=== PATIENT | female | born 1980 | race Caucasian/White ===

== ENCOUNTER 2020-05-12 12:14 | Inpatient (IN) | payer SELFPAY ==
[2020-05-12 12:15] VITALS: BP 137/77; PULSE 81; RESP 18; O2SAT 97; BMI 28.2
[2020-05-12] MEDS: haloperidol inj 5 mg/mL INJ 1 mL IM (12:24)
--- NOTE | 2020-05-12 12:30 | ED_ITS ---
HPI - Psych General: Chief Complaint: Psychiatric Symptoms Stated Complaint: PSYCH EVAL Time Seen by Provider: 05/12/20 12:22 History of Present Illness: HPI Narrative: The patient is a 39-year-old female who comes to the ER via ambulance after apparent psychotic break at home. EMS says they were there earlier in the day when she said she was anxious but was making sense and refused transport to the ER. They were called a second time and she was hallucinating saying people are there and are at their, hearing things that no one else was hearing, and telling the EMS people she was engaging in intercourse with animals. She tried to leave before they arrived and the EMT had to restrain her. In the ER she is disorganized, not answering questions appropriately. She does not know her birthday and is not answering many questions. She is not sure if she had alcohol or drugs. She denies suicidal and homicidal ideations but appears acutely manic and psychotic disorganized thought process. EMS says that she does not take medications. There are no p rior records in the ER of psychiatric visits. MD complaint: altered mental status Duration: constant Review of Systems General: Reports: ROS unobtainable due to mental status and Other (She is refusing to answer questions) Physical Exam Const: COMMON NORMALS: no acute distress, average body habitus, patient oriented x3, no limitations, healthy appearing, alert and well nourished GENERAL APPEARANCE: cooperative, comfortable and well developed ORIENTATION/CONSCIOUSNESS: Yes awake, Yes oriented to person, Yes oriented to place and Yes oriented to time HENMT: COMMON NORMALS: normocephalic, external ears normal and Normal external nose present HEAD & SCALP: normal to inspection and normocephalic NOSE: Normal external nose present EXTERNAL EAR: Yes external ears normal MOUTH: Normal oral and palatal mucosa present THROAT: posterior oropharynx normal Eye: COMMON NORMALS: Equal, round and reactive pupils present and EOMs intact bilaterally GENERAL EYE: appearance normal, both eyes and all related structures PUPIL: Yes Equal, round and reactive pupils present Neck/C-Spine: COMMON NORMALS: full ROM, no lymphadenopathy, no meningeal signs and no JVD GENERAL: Yes normal visual inspection Lymph: LYMPHATIC: no lymphadenopathy noted Chest: COMMONS NORMALS: normal inspection of the chest and normal palpation of entire chest wall Resp: COMMON NORMALS: normal respiratory effort, No retractions, No use of accessory muscles, clear to auscultation bilaterally and percussion normal EFFORT & INSPECTION: Yes able to speak in complete sentences AUSCULTATION: clear to auscultation bilaterally PERCUSSION: percussion normal Cardio: COMMON NORMALS: no JVD, regular rate, regular rhythm, S1 normal heart sound present, S2 normal heart sound present and Peripheral pulses 2+ throughout RATE: regular rate RHYTHM: regular rhythm HEART SOUNDS: S1 normal heart sound present and S2 normal heart sound present PERIPHERAL PULSES: Peripheral pulses 2+ throughout GI: COMMON NORMALS: Normal to inspection, nondistended, normoactive bowel sounds present, Soft to palpation, non-tender and no masses INSPECTION: Yes normal to inspection PALPATION: Yes Soft to palpation : COMMON NORMALS: Yes no CVA tenderness BLADDER/KIDNEY EXAM: Yes no CVA tenderness Back/Pelvis: COMMON NORMALS: no CVA tenderness, thoracic and lumbar spine normal to inspection, no thoracic nor lumbar tenderness and thoraco-lumbar ROM normal Extremity: COMMON NORMALS: normal to inspection, full ROM, capillary refill normal, no joint enlargement and no pedal edema GENERAL: Yes normal exam except as noted Neuro: COMMON NORMALS: patient oriented x3, CN's II-XII intact bilaterally, moves all extremities, no focal motor deficits, no sensory deficits noted and gait normal SENSORIUM/ORIENTATION: Yes alert, Yes oriented to person, Yes oriented to place and Yes oriented to time MENINGEAL SIGNS: Yes no meningeal signs Psych: COMMON NORMALS: denies homicidal ideation and denies suicidal ideation APPEARANCE: Yes unkempt, Yes disheveled and Yes bizarre ATTITUDE: Yes paranoid, Yes bizarre and Yes agitated ACTIVITY/MOTOR BEHAVIOR: Yes psychomotor agitation, Yes disorganized behavior and Yes Avoids eye contact (attititude/behavior) SPEECH: Yes minimal MOOD & AFFECT: Yes elevated mood and Yes anxious THOUGHT PROCESS: incoherent and disorganized ATTENTION/CON CENTRATION: Yes concentration grossly intact and Yes concentration grossly impaired MEMORY/COGNITION: Yes memory grossly impaired INSIGHT: Poor insight present (Psych) JUDGEMENT: Poor judgement present (Psych) OTHER: Actively hallucinating thoughts of people that are in the room animals in the room and other people are not real. Skin: COMMON NORMALS: no rashes or lesions noted GENERAL SKIN EXAM: no rashes or lesions noted MDM - Psych MDM Narrative: Medical decision making narrative: After Haldol she was still not thinking clearly and I wrote an involuntary petition for her admission to [facility]. She was accepted by psych and transferred in stable condition. She also had meth in her system which likely contributed to her dehydration and psychosis. Differential Diagnosis: Psych Differential Diagnosis: Likely acute psychosis and drug-induced psychotic disorder Lab Data: Labs: Lab Results 05/12/20 05/12/20 05/12/20 Range/Units 12:29 12:29 12:29 WBC (4.0-10.0) 10^3/ uL RBC (4.1-5.3) 10^6/u L Hgb (11.5-15.3) g/dL Hct (37.0-47.0) % MCV (81-99) fL MCH (28.0-34.0) pg MCHC (30.0-36.0) g/dL RDW (12.1-15.1) % Plt Count (130-400) 10^3/c mm MPV (7.4-10.4) fL Neut % (Auto) % Lymph % (Auto) % Marin % (Auto) % Eos % (Auto) % Baso % (Auto) % Neut # (Auto) (1.8-7.7) 10^3/u L Lymph # (Auto) (0.8-4.8) 10^3/u L Marin # (Auto) (0.2-0.9) 10^3/u L Eos # (Auto) (0.0-0.8) 10^3/u L Baso # (Auto) (0.0-0.1) 10^3/u L Nucleated RBC % (a uto) % Nucleated RBCs # /100WBC Sodium (136-145) mmol/L Potassium (3.5-5.1) mmol/L Chloride (98-107) mmol/L Carbon Dioxide (22-29) mmol/L Anion Gap (5-19) BUN (6-20) mg/dL Creatinine (0.5-0.9) mg/dL GFR Calculation (90-130) mL/min Glucose (65-115) mg/dL Calculated Osmolal ity (285-295) mOsm/k g Calcium (8.5-10.5) mg/dL Total Bilirubin (0.15-1.2) mg/dL AST (0-32) U/L ALT (0-33) U/L Alkaline Phosphata se (35-105) IU/L Total Protein (6.6-8.7) g/dL Albumin (3.5-5.2) g/dL Globulin (1.3-4.6) g/dL HCG, Qual Negative (Negative) Urine Color Yellow (Yellow) Urine Appearance Clear (CLEAR) Urine pH 5 (5-7) Ur Specific Gravit y 1.025 (1.005-1.030) Urine Protein Trace (Negative) Urine Glucose (UA) Norm (Normal) Urine Ketones 2+ H (Negative) Urine Blood 2+ H (Negative) Urine Nitrate Negative (Negative) Urine Bilirubin 1+ H (Negative) Urine Urobilinogen 4 H (Negative) mg/dL Ur Leukocyte Kirstin ase Negative (Negative) Urine RBC 0-4 H (0-2) /hpf Urine WBC None (0-5) /hpf Ur Squamous Epith Cells 5-10 H (0-5) /hpf Amorphous Sediment Not Reportable Urine Bacteria 1+ H (NONE) /hpf Urine Mucus 1+ /hpf Salicylates (3-10) mg/dL Urine Opiates Scre en Negative (Negative) ng/mL Acetaminophen (10-30) ug/mL Ur Barbiturates Sc reen Negative (Negative) ng/mL Ur Phencyclidine S crn Negative (Negative) ng/mL Ur Amphetamines Sc reen Positive H (Negative) ng/mL U Benzodiazepines Scrn Negative (Negative) ng/mL Urine Cocaine Scre en Negative (Negative) ng/mL U Marijuana (THC) Screen Positive H (Negative) ng/mL Ethyl Alcohol (0-10) mg/dL 05/12/20 05/12/20 Range/Units 12:33 12:33 WBC 7.0 (4.0-10.0) 10^3/ uL RBC 4.49 (4.1-5.3) 10^6/u L Hgb 14.3 (11.5-15.3) g/dL Hct 40.2 (37.0-47.0) % MCV 89.5 (81-99) fL MCH 31.8 (28.0-34.0) pg MCHC 35.6 (30.0-36.0) g/dL RDW 12.0 L (12.1-15.1) % Plt Count 249 (130-400) 10^3/c mm MPV 10.4 (7.4-10.4) fL Neut % (Auto) 66.0 % Lymph % (Auto) 23.1 % Marin % (Auto) 9.9 % Eos % (Auto) 0.3 % Baso % (Auto) 0.4 % Neut # (Auto) 4.62 (1.8-7.7) 10^3/u L Lymph # (Auto) 1.6 (0.8-4.8) 10^3/u L Marin # (Auto) 0.7 (0.2-0.9) 10^3/u L Eos # (Auto) 0.0 (0.0-0.8) 10^3/u L Baso # (Auto) 0.0 (0.0-0.1) 10^3/u L Nucleated RBC % (a uto) 0 % Nucleated RBCs # 0.0 /100WBC Sodium 137 (136-145) mmol/L Potassium 3.2 L (3.5-5.1) mmol/L Chloride 104 (98-107) mmol/L Carbon Dioxide 16 L (22-29) mmol/L Anion Gap 20.2 H (5-19) BUN 14 (6-20) mg/dL Creatinine 0.8 (0.5-0.9) mg/dL GFR Calculation 79.9 L (90-130) mL/min Glucose 136 H (65-115) mg/dL Calculated Osmolal ity 287 (285-295) mOsm/k g Calcium 9.7 (8.5-10.5) mg/dL Total Bilirubin 1.5 H (0.15-1.2) mg/dL AST 24 (0-32) U/L ALT 20 (0-33) U/L Alkaline Phosphata se 63 (35-105) IU/L Total Protein 7.9 (6.6-8.7) g/dL Albumin 4.7 (3.5-5.2) g/dL Globulin 3.2 (1.3-4.6) g/dL HCG, Qual (Negative) Urine Color (Yellow) Urine Appearance (CLEAR) Urine pH (5-7) Ur Specific Gravit y (1.005-1.030) Urine Protein (Negative) Urine Glucose (UA) (Normal) Urine Ketones (Negative) Urine Blood (Negative) Urine Nitrate (Negative) Urine Bilirubin (Negative) Urine Urobilinogen (Negative) mg/dL Ur Leukocyte Kirstin ase (Negative) Urine RBC (0-2) /hpf Urine WBC (0-5) /hpf Ur Squamous Epith Cells (0-5) /hpf Amorphous Sediment Urine Bacteria (NONE) /hpf Urine Mucus /hpf Salicylates < 0.3 L (3-10) mg/dL Urine Opiates Scre en (Negative) ng/mL Acetaminophen < 5.0 L (10-30) ug/mL Ur Barbiturates Sc reen (Negative) ng/mL Ur Phencyclidine S crn (Negative) ng/mL Ur Amphetamines Sc reen (Negative) ng/mL U Benzodiazepines Scrn (Negative) ng/mL Urine Cocaine Scre en (Negative) ng/mL U Marijuana (THC) Screen (Negative) ng/mL Ethyl Alcohol < 10 (0-10) mg/dL Discharge Plan Discharge Patient Disposition: Admitted As Inpatient Admit Provider: Corey Duenas Coding Level of Care Code ED [employer] Stretcher for Dereck[employer] Fwd Exam Comprehensive
[2020-05-12 12:54] LABS: HCG Qualitative Urine. Negative (Negative)
[2020-05-12 12:58] LABS: Basophils % 0.4 %; Eosinophils % 0.3 %; Hematocrit 40.2 % (37.0-47.0); Hemoglobin 14.3 g/dL (11.5-15.3); Lymphocytes # 1.6 10^3/uL (0.8-4.8); Lymphocytes % 23.1 %; Mean Corpuscular HGB Conc 35.6 g/dL (30.0-36.0); Mean Corpuscular Hemoglobin 31.8 pg (28.0-34.0); Mean Corpuscular Volume 89.5 fL (81-99); Mean Platelet Volume 10.4 fL (7.4-10.4); Monocytes # 0.7 10^3/uL (0.2-0.9); Monocytes % 9.9 %; Neutrophils # 4.62 10^3/uL (1.8-7.7); Nucleated Red Blood Cells % 0 %; Platelet Count 249 10^3/cmm (130-400); Red Blood Count 4.49 10^6/uL (4.1-5.3)
[2020-05-12 13:01] LABS: Add Urine Microscopic? YES; Bilirubin Urine 1+ (Negative); Blood Urine 2+ (Negative); Glucose Urine UA Norm (Normal); Ketones Urine 2+ (Negative); Leukocyte Esterase Urine Negative (Negative); Nitrate Urine Negative (Negative); Protein Urine Trace (Negative); RBC Urine 0-4 /hpf (0-2); Specific Gravity, Urine 1.025 (1.005-1.030); Urine Appearance Clear (CLEAR); Urine Color Yellow (Yellow); Urobilinogen Urine 4 mg/dL (Negative); pH Urine 5 (5-7)
[2020-05-12 13:02] LABS: Add Urine Culture? No; Bacteria Urine 1+ /hpf; Mucus Urine 1+ /hpf
[2020-05-12 13:03] LABS: Amphetamines Screen Urine Positive (Negative); Barbiturates Screen Urine Negative (Negative); Benzodiazepines Screen Urine Negative (Negative); Cocaine Screen Urine Negative (Negative); Opiate Screen Urine Negative (Negative); PCP Screen Urine Negative (Negative); THC Screen Urine Positive (Negative)
[2020-05-12 13:17] LABS: Alanine Aminotransferase 20 U/L (0-33); Albumin Level 4.7 g/dL (3.5-5.2); Alkaline Phosphatase 63 IU/L (35-105); Anion Gap 20.2 (5-19); Aspartate Amino Transferase 24 U/L (0-32); Blood Urea Nitrogen 14 mg/dL (6-20); Calcium 9.7 mg/dL (8.5-10.5); Carbon Dioxide 16 mmol/L (22-29); Chloride 104 mmol/L (98-107); Globulin 3.2 g/dL (1.3-4.6); Glomerular Filtration Rate 79.9 mL/min (90-130); Glucose 136 mg/dL (65-115); Osmolality Calculated 287 mOsm/kg (285-295); Potassium 3.2 mmol/L (3.5-5.1); Sodium 137 mmol/L (136-145); Total Bilirubin 1.5 mg/dL (0.15-1.2); Total Protein 7.9 g/dL (6.6-8.7)
[2020-05-12 13:24] LABS: Acetaminophen < 5.0 ug/mL (10-30); Alcohol Level < 10 mg/dL (0-10); Salicylate < 0.3 mg/dL (3-10)
--- NOTE | 2020-05-12 13:28 | PC.NURSE ---
pt resting in bed with a much calmer affect. sitter remains at bedside
[2020-05-12] MEDS: sodium chloride 0.9% 1,000 ML 999 ML IV (14:40)
[2020-05-12] MEDS: potassium chloride ER 20 mEq Tablet PO (14:40)
[2020-05-12 16:58] VITALS: BP 102/68; PULSE 68; RESP 18; O2SAT 100
[2020-05-12 17:19] VITALS: BP 109/76; PULSE 82; RESP 18; TEMP 36.6; O2SAT 98
[2020-05-12] MEDS: nicotine 2 mg Gum BUCCAL (17:29)
[2020-05-12 21:02] VITALS: BP 109/71; PULSE 98; RESP 18; TEMP 36.9; O2SAT 98
[2020-05-13 06:00] VITALS: BP 100/63; PULSE 84; RESP 18; TEMP 36.8; O2SAT 97
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
[2020-05-13 13:04] VITALS: BP 110/74; PULSE 85; RESP 18; TEMP 36.8; O2SAT 98
--- NOTE | 2020-05-13 20:41 | PC.NURSE ---
PM Assessment Pt is resting in her room at the beginning of shift. She is calm and cooperative with staff. Pt v/s are normal, heart sounds normal, respiratory sounds normal. Pt denies pain at this time. Pt denies AH, VH, SI, HI. Pt states that she had a panic attack that brought her to the hospital to seek care at this time. Pt toxicology is positive for amphetamines and marijuana on admit. Pt states that she has never had an issue like this in the past. Will continue to monitor this patient for any changes in behavior.
[2020-05-13 21:56] VITALS: BP 114/53; PULSE 83; RESP 18; TEMP 37.1; O2SAT 97
[2020-05-14 06:00] VITALS: BP 109/66; PULSE 82; RESP 17; TEMP 36.3; O2SAT 96
[2020-05-14] MEDS: nicotine 2 mg Gum BUCCAL ×2 (11:19→16:48)
[2020-05-14 14:00] VITALS: BP 146/92; PULSE 69; RESP 18; TEMP 36.6; O2SAT 99
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
[2020-05-14 16:50] VITALS: BP 146/92; PULSE 69; RESP 18; TEMP 36.6; O2SAT 99
== END 2020-05-14 16:57 | disposition home or self-care (01) | DRG 897 ==
LOC: ER 12:55 → NP 16:59
PROVIDERS: Admitting Provider Psychiatry & Neurology Psychiatry; Emergency Provider Family Medicine; Visit Provider Psychiatry & Neurology Psychiatry
DX: F15.23 Other stimulant dependence with withdrawal (principal); F29 Unspecified psychosis not due to a substance or known physiological condition
CPT/HCPCS: 12345; 80053; 80306; 80307; 81001; 81025; 85025; 96372; 99284; J1630; J7030

== ENCOUNTER 2020-06-28 16:32 | Inpatient (IN) | payer SELFPAY ==
[2020-06-28 16:33] VITALS: PULSE 87; RESP 20; TEMP 36.3; O2SAT 98; BMI 27.4
--- NOTE | 2020-06-28 16:39 | ED_ITS ---
HPI - Psych General: Chief Complaint: Psychiatric Symptoms Stated Complaint: ANXIETY Time Seen by Provider: 06/28/20 16:34 Source: patient and EMS Mode of arrival: EMS Limitations: no limitations History of Present Illness: HPI Narrative: 39-year-old female who states she has been having extreme depression and anxiety. Patient states she is to be on lithium and has not been taking it feels like she is all over the place. She has a history of psychosis and has been admitted to the psych unit before. She denies active suicidality but states she needs help very badly. She denies any worsening or improving factors. Associated symptoms: Reports depression Review of Systems Const: Denies: fever(s), chills, body aches or change in appetite Eyes: Denies: blurry vision or eye discomfort ENMT: Denies: throat pain or dental pain Card: Denies: chest pain Resp: Denies: dyspnea GI: Denies: abdominal pain, nausea, vomiting or diarrhea : Denies: dysuria Musc: Denies: neck pain or back pain Skin/Breast: Denies: rash Neuro: Denies: headache(s) Psych: Reports: anxiety, depression and mood swings Sorin/Lymph: Denies: easy bruising All/Imm: Denies: urticaria Physical Exam Const: COMMON NORMALS: patient oriented x3 GENERAL APPEARANCE: disheveled HENMT: COMMON NORMALS: normocephalic and atraumatic HEAD & SCALP: normocephalic and atraumatic Eye: COMMON NORMALS: Equal, round and reactive pupils present and EOMs intact bilaterally PUPIL: Yes Equal, round and reactive pupils present Neck/C-Spine: COMMON NORMALS: full ROM and supple Chest: COMMONS NORMALS: normal inspection of the chest and normal palpation of entire chest wall Resp: COMMON NORMALS: normal respiratory effort, No retractions, No use of accessory muscles and clear to auscultation bilaterally AUSCULTATION: clear to auscultation bilaterally Cardio: COMMON NORMALS: regular rate, regular rhythm and No murmurs present (Cardio) RATE: regular rate RHYTHM: regular rhythm GI: COMMON NORMALS: Normal to inspection, nondistended, normoactive bowel sounds present, Soft to palpation, non-tender and no masses PALPATION: Yes Soft to palpation Extremity: COMMON NORMALS: normal to inspection and full ROM Neuro: COMMON NORMALS: patient oriented x3, moves all extremities and no focal motor deficits Psych: COMMON NORMALS: mental status grossly normal and cooperative MOOD & AFFECT: Yes depressed mood and Yes anxious Skin: COMMON NORMALS: no rashes or lesions noted and no wounds GENERAL SKIN EXAM: no rashes or lesions noted MDM - Psych MDM Narrative: Medical decision making narrative: Eliel presents here with methamphetamine abuse along with depression anxiety. I spoke to Dr. Duenas of psychiatry and will admit. Patient is medically cleared. Lab Data: Labs: Lab Results 06/28/20 06/28/20 06/28/20 Range/Units 16:54 16:54 17:41 WBC 7.4 (4.0-10.0) 10^3/ uL RBC 4.51 (4.1-5.3) 10^6/u L Hgb 14.4 (11.5-15.3) g/dL Hct 40.8 (37.0-47.0) % MCV 90.5 (81-99) fL MCH 31.9 (28.0-34.0) pg MCHC 35.3 (30.0-36.0) g/dL RDW 11.9 L (12.1-15.1) % Plt Count 215 (130-400) 10^3/c mm MPV 10.4 (7.4-10.4) fL Neut % (Auto) 72.6 % Lymph % (Auto) 18.2 % Duval % (Auto) 7.0 % Eos % (Auto) 1.5 % Baso % (Auto) 0.4 % Neut # (Auto) 5.38 (1.8-7.7) 10^3/u L Lymph # (Auto) 1.4 (0.8-4.8) 10^3/u L Duval # (Auto) 0.5 (0.2-0.9) 10^3/u L Eos # (Auto) 0.1 (0.0-0.8) 10^3/u L Baso # (Auto) 0.0 (0.0-0.1) 10^3/u L Nucleated RBC % (a uto) 0 % Nucleated RBCs # 0.0 /100WBC Sodium (136-145) mmol/L Potassium (3.5-5.1) mmol/L Chloride (98-107) mmol/L Carbon Dioxide (22-29) mmol/L Anion Gap (5-19) BUN (6-20) mg/dL Creatinine (0.5-0.9) mg/dL GFR Calculation (90-130) mL/min Glucose (65-115) mg/dL Calculated Osmolal ity (285-295) mOsm/k g Calcium (8.5-10.5) mg/dL Total Bilirubin (0.15-1.2) mg/dL AST (0-32) U/L ALT (0-33) U/L Alkaline Phosphata se (35-105) IU/L Total Protein (6.6-8.7) g/dL Albumin (3.5-5.2) g/dL Globulin (1.3-4.6) g/dL HCG, Qual Negative (Negative) Salicylates (3-10) mg/dL Urine Opiates Scre en Negative (Negative) ng/mL Acetaminophen (10-30) ug/mL Ur Barbiturates Sc reen Negative (Negative) ng/mL Ur Phencyclidine S crn Negative (Negative) ng/mL Ur Amphetamines Sc reen Positive H (Negative) ng/mL U Benzodiazepines Scrn Negative (Negative) ng/mL Urine Cocaine Scre en Negative (Negative) ng/mL U Marijuana (THC) Screen Positive H (Negative) ng/mL Ethyl Alcohol (0-10) mg/dL 06/28/20 Range/Units 17:41 WBC (4.0-10.0) 10^3/ uL RBC (4.1-5.3) 10^6/u L Hgb (11.5-15.3) g/dL Hct (37.0-47.0) % MCV (81-99) fL MCH (28.0-34.0) pg MCHC (30.0-36.0) g/dL RDW (12.1-15.1) % Plt Count (130-400) 10^3/c mm MPV (7.4-10.4) fL Neut % (Auto) % Lymph % (Auto) % Duval % (Auto) % Eos % (Auto) % Baso % (Auto) % Neut # (Auto) (1.8-7.7) 10^3/u L Lymph # (Auto) (0.8-4.8) 10^3/u L Duval # (Auto) (0.2-0.9) 10^3/u L Eos # (Auto) (0.0-0.8) 10^3/u L Baso # (Auto) (0.0-0.1) 10^3/u L Nucleated RBC % (a uto) % Nucleated RBCs # /100WBC Sodium 135 L (136-145) mmol/L Potassium 3.6 (3.5-5.1) mmol/L Chloride 103 (98-107) mmol/L Carbon Dioxide 21 L (22-29) mmol/L Anion Gap 14.6 (5-19) BUN 18 (6-20) mg/dL Creatinine 0.6 (0.5-0.9) mg/dL GFR Calculation 111.3 (90-130) mL/min Glucose 99 (65-115) mg/dL Calculated Osmolal ity 282 L (285-295) mOsm/k g Calcium 9.3 (8.5-10.5) mg/dL Total Bilirubin 1.0 (0.15-1.2) mg/dL AST 24 (0-32) U/L ALT 27 (0-33) U/L Alkaline Phosphata se 56 (35-105) IU/L Total Protein 7.5 (6.6-8.7) g/dL Albumin 4.3 (3.5-5.2) g/dL Globulin 3.2 (1.3-4.6) g/dL HCG, Qual (Negative) Salicylates < 0.3 L (3-10) mg/dL Urine Opiates Scre en (Negative) ng/mL Acetaminophen < 5.0 L (10-30) ug/mL Ur Barbiturates Sc reen (Negative) ng/mL Ur Phencyclidine S crn (Negative) ng/mL Ur Amphetamines Sc reen (Negative) ng/mL U Benzodiazepines Scrn (Negative) ng/mL Urine Cocaine Scre en (Negative) ng/mL U Marijuana (THC) Screen (Negative) ng/mL Ethyl Alcohol < 10 (0-10) mg/dL Discharge Plan Discharge Patient Disposition: Admitted As Inpatient Clinical Impression: Methamphetamine use, Psychosis, Acute anxiety Condition: Stable Coding Level of Care Code ED [place] Firer/Fireman for g Fwd Exam Comprehensive
[2020-06-28 17:12] LABS: HCG Qualitative Urine. Negative (Negative)
[2020-06-28 17:20] LABS: Amphetamines Screen Urine Positive (Negative); Barbiturates Screen Urine Negative (Negative); Benzodiazepines Screen Urine Negative (Negative); Cocaine Screen Urine Negative (Negative); Opiate Screen Urine Negative (Negative); PCP Screen Urine Negative (Negative); THC Screen Urine Positive (Negative)
[2020-06-28] MEDS: LORazepam 2 mg/mL INJ 1 mL IM (17:40)
[2020-06-28] MEDS: haloperidol inj 5 mg/mL INJ 1 mL IM (17:49)
[2020-06-28 17:59] LABS: Basophils % 0.4 %; Eosinophils # 0.1 10^3/uL (0.0-0.8); Eosinophils % 1.5 %; Hematocrit 40.8 % (37.0-47.0); Hemoglobin 14.4 g/dL (11.5-15.3); Lymphocytes # 1.4 10^3/uL (0.8-4.8); Lymphocytes % 18.2 %; Mean Corpuscular HGB Conc 35.3 g/dL (30.0-36.0); Mean Corpuscular Hemoglobin 31.9 pg (28.0-34.0); Mean Corpuscular Volume 90.5 fL (81-99); Mean Platelet Volume 10.4 fL (7.4-10.4); Monocytes # 0.5 10^3/uL (0.2-0.9); Neutrophils # 5.38 10^3/uL (1.8-7.7); Neutrophils % 72.6 %; Nucleated Red Blood Cells % 0 %; Platelet Count 215 10^3/cmm (130-400); Red Blood Count 4.51 10^6/uL (4.1-5.3); Red Cell Distribution Width 11.9 % (12.1-15.1); White Blood Count 7.4 10^3/uL (4.0-10.0)
[2020-06-28 18:17] LABS: Alanine Aminotransferase 27 U/L (0-33); Albumin Level 4.3 g/dL (3.5-5.2); Alkaline Phosphatase 56 IU/L (35-105); Anion Gap 14.6 (5-19); Aspartate Amino Transferase 24 U/L (0-32); Blood Urea Nitrogen 18 mg/dL (6-20); Calcium 9.3 mg/dL (8.5-10.5); Carbon Dioxide 21 mmol/L (22-29); Chloride 103 mmol/L (98-107); Globulin 3.2 g/dL (1.3-4.6); Glomerular Filtration Rate 111.3 mL/min (90-130); Glucose 99 mg/dL (65-115); Osmolality Calculated 282 mOsm/kg (285-295); Potassium 3.6 mmol/L (3.5-5.1); Sodium 135 mmol/L (136-145); Total Protein 7.5 g/dL (6.6-8.7)
[2020-06-28 18:18] LABS: Acetaminophen < 5.0 ug/mL (10-30); Alcohol Level < 10 mg/dL (0-10); Salicylate < 0.3 mg/dL (3-10)
--- NOTE | 2020-06-28 18:56 | PC.NURSE ---
patient report recieved from BETH FERRO and care transferred to KASIE Tinoco
[2020-06-28 19:28] VITALS: BP 123/83; PULSE 101; RESP 18; TEMP 36.5; O2SAT 97
--- NOTE | 2020-06-28 20:14 | PC.NURSE ---
PM admission assessment 39-year-old female who states she has been having extreme depression and anxiety. Patient states she is to be on lithium and has not been taking it feels like she is all over the place. She has a history of psychosis and has been admitted to the psych unit before. She denies active suicidality but states she needs help very badly. She denies any worsening or improving factors., BAL-neg DOA- thc/meth pt somewhat sedated from ED, Ativan 2mg IM, Haldol 1mg IM given at 1740 , pt calm and cooperative, one small bruise on the upper left thigh, a few tattoos, no infection or open wounds noted, pt sleeping
[2020-06-28 20:40] VITALS: BP 123/83; PULSE 101; RESP 18; TEMP 36.5; O2SAT 97
[2020-06-29 06:00] VITALS: BP 103/62; PULSE 49; RESP 15; TEMP 36.6; O2SAT 97
[2020-06-29 13:41] VITALS: BP 99/63; PULSE 68; RESP 18; TEMP 37.2; O2SAT 98
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
[2020-06-29 19:25] VITALS: BP 107/61; PULSE 62; RESP 19; TEMP 37.3; O2SAT 97
[2020-06-29] MEDS: ARIPiprazole 10 mg Tablet 5 MG PO (20:30)
[2020-06-29] MEDS: trazodone 50 mg Tablet PO (20:30)
[2020-06-29] MEDS: hyDROXYzine 25 mg Capsule 50 MG PO (20:30)
--- NOTE | 2020-06-29 21:10 | PC.NURSE ---
PM ASSESSMENT PT IS RESTING IN HER ROOM, STATES SHE WOULD LIKE TO HAVE A SHOWER, AND NEEDS SOME VISTERIL FOR HER ANXIETY THIS EVENING, PT REPORTS TROUBLE GOING TO SLEEP AND WANTED SOMETHING TO HELP HER REST TONIGHT, MED NURSE NOTIFIED OF PT REQUESTS. V/S ARE WNL,HEART/LUNG SOUNDS ARE WNL, PT DENIES PAIN, DENIES SI/HI, DENIES AH/VH. WILL CONTINUE TO MONITOR PT
[2020-06-30 06:00] VITALS: BP 110/61; PULSE 59; RESP 18; TEMP 36.6; O2SAT 97
[2020-06-30] MEDS: ARIPiprazole 10 mg Tablet PO (08:17)
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
[2020-06-30 12:37] VITALS: BP 110/61; PULSE 59; RESP 18; TEMP 36.6; O2SAT 97
[2020-06-30 14:00] VITALS: BP 115/72; PULSE 69; RESP 17; TEMP 36.6; O2SAT 99
== END 2020-06-30 14:25 | disposition home or self-care (01) | DRG 885 ==
LOC: ER 18:25 → NP 18:48
PROVIDERS: Admitting Provider Psychiatry & Neurology Psychiatry; Emergency Provider Emergency Medicine; Visit Provider Psychiatry & Neurology Psychiatry
DX: F29 Unspecified psychosis not due to a substance or known physiological condition (principal); F15.93 Other stimulant use, unspecified with withdrawal; F41.8 Other specified anxiety disorders; Z91.14 Patient's other noncompliance with medication regimen
CPT/HCPCS: 12345; 80053; 80306; 80307; 81025; 85025; 96372; 99284; J1630; J2060